=== PATIENT | female | born 1985 | race Caucasian/White ===

== ENCOUNTER 2017-04-10 08:50 | Day surgery (SDC) | payer BC, MEDICAID ==
[~2017-04-10] VITALS: Ht 162.6 cm; Wt 85.3 kg
[~2017-04-10 08:50] MED LIST: GLUCOPHAGE500 MG PO; LEXAPRO10 MG PO; MICROGESTIN FE1 EACH PO; OMEPRAZOLE20 M1 PO
[2017-04-10] MEDS ORDERED: PRENATAL COMPLE1 TAB PO (11:01)
[2017-04-10 11:08] VITALS: BP 128/77; Ht 162.6 cm; Wt 85.3 kg
[2017-04-10 12:34] LABS: BASOPHILS 0.2 % (0-2); EOSINOPHILS 1.3 % (0-7); HEMATOCRIT 37.6 % (36.0-48.0); HEMOGLOBIN 12.5 g/dL (12-16); IMMATURE GRANULOCYTES 0.2 % (0-5); LYMPHOCYTES 38.8 % (15-50); MCH 31.7 pg (26.0-34.0); MCHC 33.2 g/dL (31.0-37.0); MCV 95.4 fL (80.0-100.0); MEAN PLATELET VOLUME 9.4 fL (7.4-10.4); MONOCYTES 5.6 % (2-11); NEUTROPHILS 53.9 % (40-80); PLATELET COUNT 219 10x3/uL (130-400); RBC 3.94 10x6/uL (4.00-5.40); RDW 11.8 % (11.5-14.5); WBC 5.5 10x3/uL (4.8-10.8)
--- NOTE | 2017-04-10 12:50 | NUR ---
THE PATIENT COMPLAINS OF A SORE THROAT
--- NOTE | 2017-04-11 09:02 | OP ---
PATIENT NAME: ARON LINDSEY MEDICAL RECORD: [id number] :81 LOCATION:.[facility] ADMISSION DATE: SURGEON: DOUGIE ARREOLA MD DATE OF OPERATION: 04/10/2017 PREOPERATIVE DIAGNOSIS: Missed . POSTOPERATIVE DIAGNOSIS: Missed . PROCEDURE: Dilation and evacuation. SURGEON: Dougie Arreola MD ANESTHESIOLOGIST: Martinez Gomez MD ASSISTANT EXECUTIVE HOUSEKEEPER: Tia Alexander. ANESTHESIA: General. FINDINGS: Uterus is enlarged to approximately 11-12 week size. The vaginal mucosa is unremarkable. Cervical os is unremarkable. SPECIMENS REMOVED: Products of conception. SPECIMEN DISPOSITION: Pathology. ESTIMATED BLOOD LOSS: 200 cc. FLUIDS: 500 cc of lactated Ringer's. URINE OUTPUT: Quantity sufficient void prior to the procedure. INDICATIONS: The patient is a 31-year-old parous female with a known missed . The crown rump length is measuring approximately 8-9 weeks size with gestational age in excess of 12 weeks. The patient has no cardiac activity on ultrasound. DESCRIPTION OF PROCEDURE: After informed consent was assured, the patient was taken to the operating room where anesthetic was obtained without difficulty. The patient was now prepped and draped in the usual sterile fashion. A speculum was introduced in the vagina. The cervix was grasped with a single-tooth tenaculum and serially dilated to accommodate a curved suction curette. The suction curette was passed to the fundus and suction applied. Products of conception were removed on several passes. A large portion of the products was removed with Christian stone forceps at the os. A sharp curette was performed with good cry throughout. Bimanual exam was performed and the uterus was involuting. Methergine will be given in the PACU. Sponge, lap and needle counts correct times 2, as the single-tooth tenaculum which was used to hold the cervix during this procedure was removed and the puncture sites found to be hemostatic. Minimal bleeding was noted from the os. TRANSINT:[id number] Voice Confirmation ID: [id number] DOCUMENT ID: [id number] OPERATIVE REPORT [id number] ROSALIAARON DOUGIE BRICE MD at 0902 CC: [id number] DICTATION DATE: 04/10/17 1243 FUNERAL CAR DRIVER: 04/10/17 1524 [facility] 04/10/17 [facility] [address] [place] [address]
== END 2017-04-10 14:50 | disposition home or self-care (01) ==
LOC: D.OPS 08:50 → D.PAN 11:30 → D.OPS 11:30
PROVIDERS: Obstetrics & Gynecology
DX: O02.1 Missed abortion (principal); Z87.891 Personal history of nicotine dependence; Z01.812 Encounter for preprocedural laboratory examination

== ENCOUNTER → 2018-05-25 12:06 | Outpatient (CLI) | payer BC, MEDICAID ==
[2017-04-10 11:08] VITALS: BMI 32.3
[~2018-05-25 12:06] MED LIST changes: +PRENATAL COMPLE1 TAB PO
== END | disposition home or self-care (01) ==
LOC: D.LDO 12:06
DX: O36.8130 Decreased fetal movements, third trimester, not applicable or unspecified (principal); Z3A.32 32 weeks gestation of pregnancy

== ENCOUNTER 2018-07-08 19:34 | Inpatient (IN) | payer BC, MEDICAID ==
[~2018-07-08] VITALS: Ht 162.6 cm; Wt 108.0 kg
[2018-07-08 20:21] VITALS: BP 137/75; Ht 162.6 cm; Wt 108.0 kg
[2018-07-08 21:01] LABS: HEMATOCRIT 31.6 % (36.0-48.0); HEMOGLOBIN 10.1 g/dL (12-16); MCH 28.9 pg (26.0-34.0); MCV 90.5 fL (80.0-100.0); MEAN PLATELET VOLUME 9.8 fL (7.4-10.4); RBC 3.49 10x6/uL (4.00-5.40); RDW 13.3 % (11.5-14.5); WBC 6.2 10x3/uL (4.8-10.8)
[2018-07-08 21:06] LABS: APPEARANCE CLEAR (CLEAR); BILIRUBIN NEGATIVE (NEGATIVE); COLOR YELLOW (YELLOW); GLUCOSE NEGATIVE (NEGATIVE); KETONE NEGATIVE (NEGATIVE); NITRITE NEGATIVE (NEGATIVE); PROTEIN TRACE mg/dL (NEGATIVE); UROBILINOGEN NORMAL (NORMAL)
[2018-07-09] VITALS (7 sets, daily range): BP systolic 144–174; BP diastolic 75–86
[2018-07-09 06:43] LABS: ALT (SGPT) 8 U/L (10-68); CALC OSMOLALITY 278 mosm/kg (275-300); CALCIUM 8.2 mg/dL (8.5-10.1); CARBON DIOXIDE 22.4 mmol/L (21.0-32.0); CHLORIDE - SERUM 107 mmol/L (98-107); CREATININE - SERUM 0.5 mg/dL (0.6-1.3); GLUCOSE 91 mg/dL (74-106); POTASSIUM - SERUM 3.9 mmol/L (3.5-5.1); SODIUM 141 mmol/L (136-145); UREA NITROGEN 7 mg/dL (7-18); URIC ACID 3.3 mg/dL (2.6-7.2); eGFR NON AFRICAN AMERICAN > 90 mL/min (90-120)
--- NOTE | 2018-07-09 13:02 | NUR ---
PT RECEIVED TO ROOM 1274 FROM PER Meir SPARROW RN. INTO BED FROM LABOR BED. PT LEGS NUMB SO ASSISTED ONTO BED. VS DONE. IV OF LR INFUSING INTO RT WRIST- PLACED ON PUMP AND INFUSING AT 50CC/HR. O2 SAT AT 91-92. PLACED ON 02 AT 2L/NC. VERBAL RESPONSES APPRO TO QUESTIONS. PT STATES COLD- PT WITH WARM BLANKETS. SMALL BANDAIDE AT UMBILICUS-CLEAN DRY AND INTACT. NO STERN NOTED.
--- NOTE | 2018-07-09 13:12 | NUR ---
SYED PAD FROM RR SATURATED- BLOOD. PERIPAD AND CHUX WITH SMALL TO MOD LOCHIA NOTED (SMALL CLOT X 2 ON CHUX) CHANGED. PT CLEANSED.
--- NOTE | 2018-07-09 13:47 | NUR ---
ABLE TO MOVE LEGS A BIT MORE. SMALL LOCHIA NOTED ON PAD AT THIS TIME.
--- NOTE | 2018-07-09 14:15 | NUR ---
baby at breast. pt more awake now. small-mod lochia noted on pad- small clot x1.
--- NOTE | 2018-07-09 14:43 | NUR ---
pt more awake now. able to lift both legs at hips. family steps out of room. ambulatory to bathroom- voided 900cc into container. pericare done with betadine and warm water. pt refuses dermaplast at this time. denies soreness perineal area. linens changed and back to bed.
--- NOTE | 2018-07-09 17:29 | NUR ---
sitting up in bed -talking with visitors.
--- NOTE | 2018-07-09 19:00 | NUR ---
REPORT RECEIVED FROM DAY SHIFT RN. NO PROBLEMS REPORTED. WILL MONITOR
--- NOTE | 2018-07-09 19:10 | NUR ---
LAYING IN BED, AWAKE AND ALERT. ASSESSMENT COMPLETED, SEE FLOWSHEET. STATED MILD BLEEDING NOTED TO PAD. SMALL DRESSING NOTED TO ABD. CLEAN DRY AND INTACT. STATED PAIN WAS TOLERABLE AT THIS TIME. DENIES ANY DIZZINESS UPON STANDING. DENIES ANY NEEDS AT THIS TIME. CL IN REACH. AT BEDSIDE. WILL MONITOR
--- NOTE | 2018-07-09 19:10 | NUR ---
FUNDUS FIRM MIDLINE U2 ON ASSESSMENT
--- NOTE | 2018-07-09 20:16 | NUR ---
PAIN MED GIVEN PER REQUEST. SEE EMAR. STATED 08/29 TO ABD AREA. WILL MONITOR
--- NOTE | 2018-07-09 20:56 | NUR ---
SITTING UP IN BED. AT BEDSIDE. STATED PAIN BETTER. DENIES NEEDS, WILL MONITOR
--- NOTE | 2018-07-09 22:21 | NUR ---
LAYING IN BED, RESTING WITH EYES CLOSED. AT BEDSIDE, CL IN REACH. WILL MONITOR
--- NOTE | 2018-07-09 23:16 | NUR ---
LAYING IN BED, RESTING WITH EYES CLOSED. RESP WNL. NO DISTRESS NOTED. CL IN REACH, WILL [id number]
--- NOTE | 2018-07-10 00:30 | NUR ---
RESTING IN BED WITH EYES CLOSED. NO DISTRESS NOTED. RESP WNL. WILL MONITOR
--- NOTE | 2018-07-10 01:15 | NUR ---
MOM UP IN ROOM CHANGING INFANT. STATED PAIN WAS 3/10 TORADOL 10MG GIVEN PER ORDER. PAD CHANGED ON BED. DENIES ANY OTHER NEEDS AT THIS TIME. WILL MONITOR
[2018-07-10 01:21] VITALS: BP 160/70
--- NOTE | 2018-07-10 02:36 | NUR ---
HOLDING IN ARMS. AWAKE AND ALERT. REQUESTING ICE WATER. DENIES ANY OTHER NEEDS, WILL MONITOR
--- NOTE | 2018-07-10 03:40 | NUR ---
LAYING IN BED, RESTING WITH EYES CLOSED. RESP WNL. AT BEDSIDE. WILL MONITOR
--- NOTE | 2018-07-10 04:27 | NUR ---
LAYING SUPINE IN BED. RESTING WITH EYES CLOSED. RESP WNL. CL IN REACH. WILL MONITOR
--- NOTE | 2018-07-10 05:29 | NUR ---
STATED PAIN 4/10 IN ABD AREA. MEDICATION GIVEN PER ORDER. SEE EMAR. STATED BLEEDING IS SMALL AMOUNT. DENIES ANY OTHER NEEDS. WILL MONITOR
--- NOTE | 2018-07-10 06:00 | NUR ---
STATED PAIN AT THIS TIME WAS 1/10 AT THIS TIME. DENIES NEEDS
--- NOTE | 2018-07-10 06:08 | NUR ---
IN BED HOLDING IN ARMS. AWAKE AND ALERT. STATED PAIN WAS 1/10. DENIES NEEDS, WILL MONITOR
[2018-07-10 07:09] LABS: BASOPHILS 0.1 % (0-2); EOSINOPHILS 0.8 % (0-7); HEMATOCRIT 33.4 % (36.0-48.0); HEMOGLOBIN 10.5 g/dL (12-16); IMMATURE GRANULOCYTES 0.4 % (0-5); LYMPHOCYTES 9.3 % (15-50); MCH 28.7 pg (26.0-34.0); MCHC 31.4 g/dL (31.0-37.0); MCV 91.3 fL (80.0-100.0); MEAN PLATELET VOLUME 10.2 fL (7.4-10.4); MONOCYTES 5.2 % (2-11); NEUTROPHILS 84.2 % (40-80); PLATELET COUNT 202 10x3/uL (130-400); RBC 3.66 10x6/uL (4.00-5.40); RDW 13.5 % (11.5-14.5); WBC 7.6 10x3/uL (4.8-10.8)
[2018-07-10 07:28] LABS: RAPID PLASMA REAGIN Non Reactive (Non Reactive)
--- NOTE | 2018-07-10 08:08 | NUR ---
Desi Christopher 07/10/18 S: Patient states things are going with . States infant is a big baby so he just wants to eat a lot. She will latch him and he can eat for 20 minutes then still act like he is hungry. States she did breastfeed her other daughters and things went good with them. States she has been feeding about every 2 hours and she started to give him formula because he acts like he is still hungry, states refuses formula when she offers it to him. Denies questions or concerns at this time and verbally agrees to call nursery staff for help with . O: Patient lying in bed, lights dim, and infant in crib next to bed. Congratulated on delivery and asked how are things going with . takes time, practice, and patience in the beginning. Explained breastmilk composition, normal feeding patterns for a breastfed , feeding cues, and the importance of practicing responsive feeding to help with establishing your milk supply. How long remains latched at the breast can vary per but most babies will latch between 15-20. Some babies can latch longer, supply and demand, what infant takes out your body will make more of. When infant shows signs of feeding cues place infant to the breast. Encouraged to offer infant both breast during feeding. Reassured patient her body is capable of making what infant needs as long as infant is placed to the breast for every feeding. Explained position and how to verify infant is latched correctly at the breast. Asked if any questions or concerns? Please let nursery staff know if any questions or concerns with . A: Patient states since infant is a big baby, he just wants to eat a lot. Denies questions or other concerns with . P: Continue to promote exclusively during hospital visit. Please address any questions or concerns with nursery staff. Delfina Ho, CLC
[2018-07-10 08:40] VITALS: BP 137/65
--- NOTE | 2018-07-10 08:45 | NUR ---
REPORT RECEIVED FROM Meir SPARROW RN. TO PT'S ROOM FOR AM ASSESSMENT. PT IS SITTING UP IN THE BED, INFANT IN CRIB AT THIS TIME, NO DISTRESS NOTED. ABDOMEN PALPATES SOFT, FUNDUS FIRM, U/1. PT DENIES HEAVY BLEEDING, STATES SHE HAS PASSED A FEW "VERY SMALL CLOTS". PT DENIES SOB, DIZZINESS, OR NAUSEA. PLAN OF CARE DISCUSSED WITH PT. PT REPORTS MD HAS ROUNDED THIS AM AND PLAN IS TO D/C HOME IF INFANT GOES HOME. PT HAS EATEN 90 % OF REGULAR BREAKFAST. MEDICATION ADM SCHEDULE REVIEWED WITH PT. SEE EMAR FOR ALL MEDS ADM BY THIS RN. PT STATES SHE WILL HAVE TO WAIT UNTIL 4 PM TO GO HOME, THAT IS WHAT TIME HER WILL GET OFF WORK TO BE ABLE TO COME AND GET HER. SR UP X 2, CALL LIGHT AND PHONE WITHIN REACH.
--- NOTE | 2018-07-10 13:44 | OP ---
PATIENT NAME: ARON LINDSEY MEDICAL RECORD: [id number] :83 LOCATION:[facility] ADMISSION DATE:07/08/18 SURGEON: DOUGIE LOO MD DATE OF OPERATION: 07/09/2018 PREDELIVERY DIAGNOSES: 1. Large for dates. 2. A 38 weeks and 4 days. POSTDELIVERY DIAGNOSES: 1. Large for dates. 2. A 38 weeks and 4 days. PROCEDURE: Induction of labor with vaginal delivery. ATTENDING: Dougie Loo MD ANESTHETIC: Continuous lumbar epidural. FINDINGS: Viable male , vertex presentation, SHELBY, Apgars 9 and 9, weight 9 pounds 7 ounces. No laceration. Placenta retained. EBL was 200 cc. DISPOSITION: With retained placenta and undesired fertility, the patient will be taken to the operating room for tubal ligation and manual extraction of the placenta if it has not delivered at that time. TRANSINT:[id number] Voice Confirmation ID: [id number] DOCUMENT ID: [id number] DOUGIE LOO MD at 1344 CC: [id number] DICTATION DATE: 07/09/18 1043 INDUSTRIAL EDITOR: 07/09/18 1126 ADM IN [place] [id number] [place] [address]
--- NOTE | 2018-07-10 13:44 | OP ---
PATIENT NAME: ARON LINDSEY MEDICAL RECORD: [id number] :81 LOCATION:[facility] ADMISSION DATE:07/08/18 SURGEON: DOUGIE ARREOLA MD DATE OF OPERATION: 07/09/2018 PREOPERATIVE DIAGNOSES: 1. Retained placenta after vaginal . 2. Undesired fertility. POSTOPERATIVE DIAGNOSES: 1. Retained placenta after vaginal . 2. Undesired fertility. PROCEDURE: 1. Manual extraction of the placenta. 2. tubal ligation using a [place] technique. SURGEON: Dougie Arreola MD ANESTHESIOLOGIST: Dr. Gomez ANESTHETIC: Continuous lumbar epidural with subsequent general anesthetic. FINDINGS: Placenta, retained. No active bleeding. Placenta removed in separate portions. At the time of exploration of the uterus post-delivery placenta, no overt remaining tissue. At the time of tubal ligation, uterine fundus and tubes are unremarkable. SPECIMENS REMOVED: 1. Placenta. 2. Tubes sent separate. SPECIMEN DISPOSITION: All specimens to pathology. ESTIMATED BLOOD LOSS: 200-250 cc at the time of extraction, minimal at the time of tubal ligation. FLUIDS: 1400 cc. URINE OUTPUT: Quantity sufficient cath prior to this procedure. COMPLICATIONS: None. DRAINS: None. INDICATIONS: The patient is a 32-year-old female who is status post vaginal delivery with retained placenta. The patient also has undesired fertility. The patient was taken to the operating room after informed consent was given and risks and benefits of procedures discussed. DESCRIPTION OF PROCEDURE: After informed consent was assured, the patient was taken to the operating room where anesthetic was obtained. The continuous epidural being properly dosed, the patient was positioned and manual extraction of the placenta was attempted. The uterine tone prohibited removal of placenta and the patient goes through rapid sequence induction and was intubated. After OPERATIVE REPORT [id number] ARON LINDSEY initiation of gas, uterus relaxes and it was extracted. The patient having been prepped and draped on the abdomen, now has a tubal ligation performed. Attention was directed to the umbilicus where the infraumbilical incision site was selected. An incision was made, carried down to the underlying fascia. The fascia was opened. The right tube was identified and followed to its fimbriated end. A knuckle was now developed 3-4 cm from the cornual region and this was doubly ligated. The intervening knuckle of tube was excised and the ostia cauterized. The tube was returned to the abdomen. This was repeated on the contralateral side. Again, the tube was followed to the fimbriated end, a knuckle developed and doubly ligated. The segment of tube contained within the ligation was excised and the ostia cauterized. The tubal stump was returned to the abdomen. Fascia was closed with Vicryl. Sponge, lap, and needle counts were correct times 2. The skin was closed with 3-0 Monocryl. TRANSINT:[id number] Voice Confirmation ID: [id number] DOCUMENT ID: [id number] DOUGIE ARREOLA MD at 1344 CC: [id number] DICTATION DATE: 07/09/18 1225 SET AND EXHIBIT DESIGNER: 07/09/18 1243 ADM IN [place] [id number] [place] [address]
--- NOTE | 2018-07-10 13:45 | NUR ---
DR. ARREOLA ON UNIT, WITH VERBAL ORDERS TO DISCHARGE PT HOME WITH .
[2018-07-10] MEDS ORDERED: IBUPROFEN800 MG PO (14:17)
[2018-07-10] MEDS ORDERED: PERCOCET 5-3251 TAB PO (14:18)
--- NOTE | 2018-07-10 14:44 | NUR ---
DISCHARGE INSTRUCTIONS EXPLAINED TO PT, PT DENIES QUESTIONS. COPIES OF D/C INSTRUCTIONS PROVIDED TO PT ALONG WITH APPT CARD FOR 07/24/18 AT 2:[address] ARREOLA. PT AWAITING DISCHARGE, WAITING ON TO ARRIVE TO TAKE HER HOME. AWAITING INFANT'S DISCHARGE.
--- NOTE | 2018-07-11 13:19 | DS ---
PATIENT:ARON LINDSEY :81 MEDICAL RECORD: [id number] DISCHARGE SUMMARY ADMISSION DATE: 07/08/18 DISCHARGE DATE: 07/10/18 DATE OF ADMISSION: 07/08/2018 DATE OF DISCHARGE: 07/10/2018 ADMITTING DIAGNOSES: 1. at 38 weeks and 4 days gestational age. 2. Large for gestational age. 3. Undesired fertility. DISCHARGE DIAGNOSES: 1. at 38 weeks and 4 days gestational age. 2. Large for gestational age. 3. Retained placenta. 4. Undesired fertility. PROCEDURES PERFORMED: 1. Induction with vaginal delivery. 2. Manual extraction of the placenta. 3. tubal ligation using a [place] technique. ATTENDING: Gustavo Arreola MD HISTORY OF PRESENT ILLNESS: See the H&P in the chart. SUMMARY OF HOSPITALIZATION: The patient was admitted to the hospital and underwent induction without incident. In the third stage of labor, placenta was retained. The patient had undesired fertility and at the time of tubal ligation, manual extraction of the placenta was undertaken. The patient tolerated the procedures well with [id number] blood loss and at the time of discharge is doing well on her pain management. DISCHARGE MEDICATIONS: Will include Percocet and ibuprofen. FOLLOWUP: Follow up in 2 weeks for an incision check. Standard and postoperative precautions have been reviewed. TRANSINT:[id number] Voice Confirmation ID: [id number] DOCUMENT ID: [id number] GUSTAVO ARREOLA MD at 1319 CC: [id number] DICTATION DATE: 07/10/18 1347 VOCATIONAL NURSING INSTRUCTOR: 07/11/18 0427 DIS IN 07/10/18 [id number] [place] [address]
== END 2018-07-10 17:00 | disposition home or self-care (01) | DRG 798 ==
LOC: D.LD 19:34
PROVIDERS: ADMIT Obstetrics & Gynecology
PROC: 3E033VJ Introduction of Other Hormone into Peripheral Vein, Percutaneous Approach (ICD-10-PCS; 2018-07-08)
PROC: 0UB74ZZ Excision of Bilateral Fallopian Tubes, Percutaneous Endoscopic Approach (ICD-10-PCS; 2018-07-09)
PROC: 10D17Z9 Manual Extraction of Products of Conception, Retained, Via Natural or Artificial Opening (ICD-10-PCS; 2018-07-09)
PROC: 10E0XZZ Delivery of Products of Conception, External Approach (ICD-10-PCS; principal; 2018-07-09 11:45)
DX: O36.63X0 Maternal care for excessive fetal growth, third trimester, not applicable or unspecified (principal); Z37.0 Single live birth; Z3A.38 38 weeks gestation of pregnancy; Z30.2 Encounter for sterilization; Z30.09 Encounter for other general counseling and advice on contraception; O73.0 Retained placenta without hemorrhage